=== PATIENT | male | born 1955 | race Caucasian/White ===

== ENCOUNTER 2016-07-28 23:33 | Emergency (ER) | payer SELFPAY ==
[2016-07-28 23:47] VITALS: TEMP 98.4; O2SAT 96
[2016-07-29] MEDS ORDERED: OXYCODONE/APAP 5/325 TAB PO ONE (00:05)
[2016-07-29] MEDS ORDERED: predniSONE 20 MG TAB PO ONE (00:05)
--- NOTE | 2016-07-29 00:11 | EDPHY ---
H & P Stated Complaint: LOW BACK PAIN AND PAIN TO HANDS AND FEET HPI/ROS: CHIEF COMPLAINT: Hand pain, knee pain HISTORY OF PRESENT ILLNESS: several days of bilateral hand and knee pain that has been steadily worsening. History of osteoarthritis and rheumatoid arthritis and feels that the hands are related to this. The knee pain has no diagnosis of abnormality. He says he has a history of back pain status post unknown surgery 1 year ago the lumbar spine. He knows that there is no hardware but does not know exactly what they did. This was done for data. Since that time he has had some knee pain. He has no numbness or tingling of the legs. He has no saddle anesthesia. He has no incontinence of bowel or bladder. Has no back pain of any kind right now. No fever or chills. No trauma to the knees. He has had no x-rays of the knees in the past. The pain is worse when he gets up and walks. It improves when he rests. The pain does improve throughout the morning as he ambulates. No radiating pain down the knees. 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 No other associated complaints or modifying factors. REVIEW OF SYSTEMS: Ten systems reviewed and are negative unless otherwise noted in the HPI EXAMINATION General Appearance: Alert, no distress Head: normocephalic, atraumatic Eyes: Pupils equal and round, no conjunctival pallor or injection ENT, Mouth: Mucous membranes moist . No petechiae, erythema or edema Neck: Normal inspection. No tenderness palpation midline or paravertebral Respiratory: clear to auscultation.No dyspnea or retractions. No distress Cardiovascular: Regular rate and rhythm.Pulses normal throughout. Brisk cap refill In all fingers and toes Gastrointestinal: obese. No distention . No tenderness. Back: non-tender, no bony abnormalities. Well-healed surgical incisions in the thoracic and lumbar region. No tenderness at any level midline or soft tissue Neurological: A&O, sensory symmetric in both legs and both arms. Strength is 5 /5 in both arms and both legs. No focal deficits. Patellar and triceps reflexes are symmetric Skin: Warm and dry, no rash Extremities: Nontender, no pedal edema Psychiatric: Mood and affect normal DIFFERENTIAL DIAGNOSES: Including but not limited to: Osteoarthritis, rheumatoid arthritis, chronic pain MDM: Hand and knee pain that is likely arthritic, osteo versus rheumatoid. The patient does have a history of low back pain, but he has no back pain of any kind at this time. He has no incontinence or retention of bowel or bladder. He has no radicular pain. He has some ongoing neuropathic pain of the right lower extremity that is unchanged. The pain in the hands he feels definitely rheumatoid the pain in the knees likely osteoarthritic. He feels that it only present after back surgery last year, but it is isolated to the knees. There is no dermatomal pain for him. His strength is symmetric in all limbs. His reflexes are intact. He has no focal deficits. sensory is intact as well. He has been given Percocet and prednisone here in the emergency department. Additionally, I will discharge him home on the same as well as a trial of Neurontin to see if it helps his nerve pain. He will be given primary care physician and Neurosurgery for follow-up. ER precautions for worsening pain, saddle anesthesia, incontinence of bowel or bladder, retention of bowel or bladder. Comfortable with this plan and discharged home in stable condition. ED Precautions: Worsening pain. Erythema, edema, cyanosis, pallor, paresthesia or anesthesia. SUPERVISION: This patient was independently evaluated without the aide of supervising physician. Source: Patient Exam Limitations: No limitations - Personal History Current Tetanus/Diphtheria Vaccine: Unsure Current Tetanus Diphtheria and Acellular Pertussis (TDAP): Unsure - Medical/Surgical History Hx Asthma: No Hx Chronic Respiratory Disease: No Hx Diabetes: No Hx Cardiac Disease: No Hx Renal Disease: No Hx Cirrhosis: No Hx Alcoholism: No Hx HIV/AIDS: No Hx Splenectomy or Spleen Trauma: No Other PMH: HTN, BACK SURGERY, CYST REMOVED ON BACK - Social History Smoking Status: Current every day smoker Constitutional: Initial Vital Signs Temperature (C) 98.4 F 07/28/16 23:35 Heart Rate 107 H 07/28/16 23:35 Respiratory Rate 18 07/28/16 23:35 Blood Pressure 182/125 H 07/28/16 23:35 O2 Sat (%) 96 07/28/16 23:35 O2 Delivery Mode Room Air Allergies/Adverse Reactions: No Known Allergies Allergy (Unverified 07/28/16 23:47) Home Medications: Medication Instructions Recorded Amlodipine Besylate 10 mg PO 07/28/16 Gabapentin [Neurontin 300 MG (*)] 300 mg PO TID #21 cap 07/29/16 oxyCODONE HCL/ACETAMINOPHEN 1 each PO Q4-6PRN PRN #15 tablet 07/29/16 [Percocet 5-325 mg Tablet] predniSONE 60 mg PO DAILY #12 tab 07/29/16 Medical Decision Making - Data Points Medications Given: Discontinued Medications Oxycodone/Acetaminophen (Percocet 5/325) 1 tab PO EDNOW ONE Stop: 07/29/16 00:06 Last Admin: 07/29/16 00:22 Dose: 1 tab Prednisone (Prednisone) 60 mg PO EDNOW ONE Stop: 07/29/16 00:06 Last Admin: 07/29/16 00:23 Dose: 60 mg Departure - Departure Disposition: Home, Routine, Self-Care Clinical Impression: Neuropathy Rheumatoid arthritis Qualifiers: Qualifier Code: (M06.00) Rheumatoid arthritis without rheumatoid factor, unspecified site Knee pain Qualifiers: Qualifier Code: (M25.561) Pain in right knee Hand pain Qualifiers: Qualifier Code: (M79.641) Pain in right hand Hypertension Qualifiers: Qualifier Code: (I10) Essential (primary) hypertension Condition: Good Instructions: Arthritis (ED) Referrals: NONE *PRIMARY CARE P,. [Primary Care Provider] - As per Instructions Talia Garcia MD [Medical Doctor] - As per Instructions Moraima West MD [Medical Doctor] - As per Instructions Elsy Judd DO [Doctor of Osteopathy] - As per Instructions Prescriptions: Gabapentin [Neurontin 300 MG (*)] 300 mg PO TID #21 cap oxyCODONE HCL/ACETAMINOPHEN [Percocet 5-325 mg Tablet] 1 each PO Q4-6PRN PRN # 15 tablet PRN Reason: Pain, Moderate predniSONE 60 mg PO DAILY #12 tab
[2016-07-29 01:11] VITALS: BP 179/122; PULSE 70; RESP 16
--- NOTE | 2016-07-29 08:46 | DX ---
Knee 3 Views Left History: Knee pain Comparison exam: None available. Findings: Normal alignment. Joint spaces are maintained. No fracture or joint effusion. Impression: Negative left knee radiographs.
--- NOTE | 2016-07-29 08:47 | DX ---
Knee 3 Views Right History: Knee pain. Comparison exam: None available. Findings: Normal alignment. Joint spaces are maintained. No fracture or joint effusion. Impression: Negative right knee radiographs.
== END 2016-07-29 01:15 | disposition home or self-care (01) ==
DX: M79.641 Pain in right hand (principal); M25.561 Pain in right knee; G62.9 Polyneuropathy, unspecified; M06.00 Rheumatoid arthritis without rheumatoid factor, unspecified site; I10 Essential (primary) hypertension; F17.200 Nicotine dependence, unspecified, uncomplicated

== ENCOUNTER 2016-09-16 16:13 | Emergency (ER) | payer MEDICAID ==
[2016-09-16 16:38] VITALS: RESP 18; TEMP 98.2
--- NOTE | 2016-09-16 17:12 | EDPHY ---
HPI/HX/ROS/PE/MDM Narrative: CHIEF COMPLAINT: Finger pain and swelling. HPI: The patient is a 61-year-old male with a history of RA who presents with finger pain and swelling in all of his fingers. These symptoms have been worsening over the past 2 weeks. He is now having difficulty bending his fingers. He has numbness in his fingertips. He has not been taking anything for the arthritis. He denies chest pain, shortness of breath, or any other complaints. He was seen in the ED 2 months ago for very similar symptoms. REVIEW OF SYSTEMS: Aside from elements discussed in the HPI, a comprehensive 10-point review of systems was reviewed and is negative. PMH: Hypertension, back surgery, RA. SOCIAL HISTORY: . PHYSICAL EXAM: General: Patient is alert, in no acute distress. ENT: Eyes are normal to inspection. ENT inspection normal. Neck: Normal inspection. Full range of motion. Respiratory: No respiratory distress. Breath sounds normal bilaterally. Cardiovascular: Regular rate and rhythm. Strong peripheral pulses. Abdomen: The abdomen is nontender to palpation. There are no peritoneal signs. There are normal bowel sounds. Back: Normal to inspection. No tenderness to palpation. Skin: Normal color. No rash. Warm and dry. Extremities: Normal appearance. Full range of motion. Neuro: Oriented x3. Normal motor function. Normal sensory function. No pronator drift. 5/5 strength in bilateral upper extremities. Unable to make a fist with either hand. Diffuse swelling noted to bilateral hands.Light touch sensation and motor function is preserved in the axillary, median, radial and ulnar nerve distributions. There is a 2+ radial pulse with brisk cap refill. Portions of this note were transcribed by an ED scribe. I personally performed the history, physical exam, and medical decision making; and confirm the accuracy of the information in the transcribed note. ED Course: An IV was established and labs ordered. 125mg IV Solu-Medrol administered. MDM: This patient presents with bilateral hand pain and decreased range of motion. There are no signs of unilateral focal neurologic deficit to suggest stroke or acute nerve compression. Patient has been diagnosed with rheumatoid arthritis but has been noncompliant with any therapy, and I think the most likely etiology for his symptoms represents a flare of rheumatoid arthritis. I treated him with steroid medications and will send him out on a Medrol Dosepak. 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 I see no evidence of SVC syndrome, acute carpal tunnel , fracture, dislocation. - Data Points Laboratory Results: Laboratory Results 09/16/16 17:22 09/16/16 17:22 09/16/16 09/16/16 17:22 17:22 WBC 6.64 10^3/uL 10^3/uL (3.80-9.50) RBC 5.01 10^6/uL 10^6/uL (4.40-6.38) Hgb 13.8 g/dL g/dL (13.7-17.5) Hct 41.6 % % (40.0-51.0) MCV 83.0 fL fL (81.5-99.8) MCH 27.5 pg L pg (27.9-34.1) MCHC 33.2 g/dL g/dL (32.4-36.7) RDW 15.0 % % (11.5-15.2) Plt Count 189 10^3/uL 10^3/uL (150-400) MPV 10.5 fL fL (8.7-11.7) Neut % (Auto) 70.2 % % (39.3-74.2) Lymph % (Auto) 18.2 % % (15.0-45.0) Millard % (Auto) 8.7 % % (4.5-13.0) Eos % (Auto) 1.8 % % (0.6-7.6) Baso % (Auto) 0.6 % % (0.3-1.7) Nucleat RBC Rel Count 0.0 % % (0.0-0.2) Absolute Neuts (auto) 4.66 10^3/uL 10^3/uL (1.70-6.50) Absolute Lymphs (auto) 1.21 10^3/uL 10^3/uL (1.00-3.00) Absolute Monos (auto) 0.58 10^3/uL 10^3/uL (0.30-0.80) Absolute Eos (auto) 0.12 10^3/uL 10^3/uL (0.03-0.40) Absolute Basos (auto) 0.04 10^3/uL 10^3/uL (0.02-0.10) Absolute Nucleated RBC 0.00 10^3/uL 10^3/uL (0-0.01) Immature Gran % 0.5 % % (0.0-1.1) Immature Gran # 0.03 10^3/uL 10^3/uL (0.00-0.10) Sodium 143 mEq/L mEq/L (134-144) Potassium 4.5 mEq/L mEq/L (3.5-5.2) Chloride 109 mEq/L mEq/L (97-110) Carbon Dioxide 23 mEq/l mEq/l (22-31) Anion Gap 11 mEq/L mEq/L (8-16) BUN 17 mg/dL mg/dL (7-23) Creatinine 1.1 mg/dL mg/dL (0.7-1.3) Estimated GFR > 60 Glucose 134 mg/dL H mg/dL (70-100) Calcium 9.4 mg/dL mg/dL (8.5-10.4) Medications Given: Discontinued Medications Methylprednisolone Sodium Succinate (Solu-Medrol) 125 mg IVP EDNOW ONE Stop: 09/16/16 17:18 Last Admin: 09/16/16 17:30 Dose: 125 mg Oxycodone/Acetaminophen (Percocet 5/325) 1 tab PO EDNOW ONE Stop: 09/16/16 18:26 Last Admin: 09/16/16 18:41 Dose: 1 tab General Time Seen by Provider: 09/16/16 17:09 Initial Vital Signs: Initial Vital Signs Temperature (C) 36.8 C 09/16/16 16:25 Heart Rate 95 09/16/16 16:25 Respiratory Rate 18 09/16/16 16:25 Blood Pressure 140/105 H 09/16/16 16:25 O2 Sat (%) 96 09/16/16 16:25 O2 Delivery Mode Room Air Allergies/Adverse Reactions: No Known Allergies Allergy (Verified 09/16/16 16:33) Home Medications: Medication Instructions Recorded Amlodipine Besylate 10 mg PO 07/28/16 Gabapentin [Neurontin 300 MG (*)] 300 mg PO TID #21 cap 07/29/16 methylPREDNISolone [Medrol Dose 1 each PO AD #1 ea 09/16/16 Juan Alberto] oxyCODONE/APAP 5/325 [Percocet 1 - 2 tab PO Q4H PRN #10 tab 09/16/16 5/325 (*)] traZODone [traZODONE 100MG (*)] 100 mg PO 09/16/16 Departure - Departure Disposition: Home, Routine, Self-Care Clinical Impression: Rheumatoid arthritis flare, Bilateral hand pain Condition: Good Instructions: Rheumatoid Arthritis (ED) Additional Instructions: Take the steroid as prescribed. Follow up with Dr. Núñez, roll forming machine set up mechanic, this week for reevaluation. Return to the emergency department if you experience any serious worsening of condition. Referrals: Talia Garcia MD [Primary Care Provider] - As per Instructions [place] Núñez MD [Medical Doctor] - As per Instructions Prescriptions: methylPREDNISolone [Medrol Dose Juan Alberto] 1 each PO AD #1 ea oxyCODONE/APAP 5/325 [Percocet 5/325 (*)] 1 - 2 tab PO Q4H PRN #10 tab PRN Reason: Pain, Severe Report Scribed for: Juan Manuel Rodriguez Report Scribed by: Krish Reid Date of Report: 09/16/16 Time of Report: 17:16
[2016-09-16] MEDS ORDERED: methylPREDNISolone SOD SUCC 125 MG/2 ML VIAL IVP ONE (17:17)
[2016-09-16 17:29] LABS: % IMMATURE GRANULYOCYTES 0.5 % (0.0-1.1); ABSOLUTE IMMATURE GRANULOCYTES 0.03 10^3/uL (0.00-0.10); ADD DIFF? NO; ADD MORPH? NO; ADD SCAN? NO; ATYPICAL LYMPHOCYTE FLAG 20 (0-99); FRAGMENT RBC FLAG 0 (0-99); HEMATOCRIT 41.6 % (40.0-51.0); HEMOGLOBIN 13.8 g/dL (13.7-17.5); LEFT SHIFT FLG 0 (0-99); LIPEMIA HEMOLYSIS FLAG 80 (0-99); MEAN CELL HEMOGLOBIN 27.5 pg (27.9-34.1); MEAN CELL HEMOGLOBIN CONCENTR. 33.2 g/dL (32.4-36.7); MEAN PLATELET VOLUME 10.5 fL (8.7-11.7); PLATELET CLUMPS FLAG 0 (0-99); PLATELET COUNT 189 10^3/uL (150-400); RED BLOOD CELL COUNT 5.01 10^6/uL (4.40-6.38)
[2016-09-16 17:46] LABS: ANION GAP 11 mEq/L (8-16); CALCIUM 9.4 mg/dL (8.5-10.4); CARBON DIOXIDE 23 mEq/l (22-31); CHLORIDE 109 mEq/L (97-110); CREATININE 1.1 mg/dL (0.7-1.3); GLOMERULAR FILTRATION RATE > 60; GLUCOSE 134 mg/dL (70-100); POTASSIUM 4.5 mEq/L (3.5-5.2); SODIUM 143 mEq/L (134-144)
[2016-09-16] MEDS ORDERED: OXYCODONE/APAP 5/325 TAB PO ONE (18:25)
[2016-09-16 19:34] VITALS: BP 153/104; PULSE 82; O2SAT 93
== END 2016-09-16 19:33 | disposition home or self-care (01) ==
DX: M06.9 Rheumatoid arthritis, unspecified (principal); I10 Essential (primary) hypertension
CPT/HCPCS: 96374

== ENCOUNTER 2017-08-05 18:56 | Emergency (ER) | payer OTHER, MEDICAID ==
[2017-08-05 19:05] VITALS: TEMP 98.1
--- NOTE | 2017-08-05 19:32 | EDPHY ---
H & P Time Seen by Provider: 08/05/17 19:14 HPI/ROS: CHIEF COMPLAINT: Leg pain, swelling HISTORY OF PRESENT ILLNESS: The patient is a 62-year-old male with a history of hypertension and back surgery presents to the emergency department with new left-sided leg pain and bilateral leg swelling. Patient states he has had mild leg swelling since his surgery 2 years ago. He has also had mild chronic bilateral knee pain since the surgery. However, over the past week he has developed pain in his left buttock radiating to his left lateral knee. Patient also states that he has bilateral pedal edema that is worsening. He has had no chest pain or shortness of breath. No abdominal pain. No nausea or vomiting. No fevers or chills. REVIEW OF SYSTEMS: My complete review of systems is negative except as mentioned in the HPI. Past Medical/Surgical History: Includes hypertension, chronic pain, rheumatoid arthritis Past surgical history: Back surgery, cyst removal Social history: The patient smokes cigarettes. He denies drugs or alcohol. Smoking Status: Current every day smoker Physical Exam: 36.7, 184/102, 92, 18, 96 GENERAL: No acute distress, alert. The room smells of tobacco smoke. HEENT: Eyes normal to inspection, normal pharynx, no signs of dehydration. NECK: No thyromegaly, no lymphadenopathy, supple. RESPIRATORY: Clear to auscultation bilaterally, no rales, rhonchi or wheezing. CVS: Regular rate and rhythm, no rubs, murmurs, or gallops. ABDOMEN: Soft, nontender, nondistended, no organomegaly. BACK: Normal to inspection, no CVA tenderness. No SI tenderness palpation. No midline spinal tenderness to palpation. There is a noted surgical scar. SKIN: Normal color, no rash, warm, dry. No pallor. EXTREMITIES: Bilateral mild pedal edema, no calf tenderness, no Homans sign or cords, no joint swelling. NEURO/PSYCH: Alert and oriented x3, normal mood and affect, normal motor sensory exam. No obvious cranial nerve deficit. Constitutional: Initial Vital Signs Temperature (C) 36.7 C 08/05/17 19:02 Heart Rate 92 08/05/17 19:02 Respiratory Rate 18 08/05/17 19:02 Blood Pressure 184/102 H 08/05/17 19:02 O2 Sat (%) 96 08/05/17 19:02 O2 Delivery Mode Room Air Allergies/Adverse Reactions: No Known Allergies Allergy (Verified 08/05/17 19:01) Home Medications: Medication Instructions Recorded amLODIPine BESYLATE [Amlodipine 10 mg PO 07/28/16 Besylate] Gabapentin [Neurontin 300 MG (*)] 300 mg PO TID #21 cap 07/29/16 oxyCODONE/APAP 5/325 [Percocet 1 - 2 tab PO Q4H PRN #10 tab 09/16/16 5/325 (*)] Azithromycin 250 mg PO DAILY #4 tablet 08/05/17 Cyclobenzaprine [Flexeril] 10 mg PO TID #15 tab 08/05/17 oxyCODONE/APAP 5/325 [Percocet 1 - 2 tab PO Q4PRN PRN #11 tab 08/05/17 5/325 (*)] Medical Decision Making - Diagnostics Imaging Results: Imaging Impressions Chest X-Ray 08/05/17 20:09 Impression: Mild bronchitis. No other findings for acute cardiopulmonary abnormality. Chronic findings, as above. Extremity Venous Study 08/05/17 20:10 Impression: No deep venous thrombosis bilateral legs. Results called and discussed with Dr. Rosemarie Maldonado at 08/05/2017 21:49. ED Course/Re-evaluation: In the emergency department I discussed possible etiologies with the patient. I answered all his questions. IV was placed. Laboratory studies, chest x-ray, EKG and ultrasound were ordered. The patient was given morphine 4 mg IV for pain control and Zofran 4 mg IV for nausea. Patient was still having leg pain after his 1st dose of morphine was given 2nd dose of 4 mg morphine. 95: During his ultrasound he was complaining of leg pain and states he could not continue with the study. He is given fentanyl 100 mcg IV. Differential Diagnosis: Differential includes but is not limited to sciatica, disc herniation, musculoskeletal strain, arterial occlusion, DVT, CHF, ACS - Data Points Laboratory Results: Laboratory Results 08/05/17 20:15 08/05/17 20:15 08/05/17 08/05/17 20:15 20:15 WBC 6.23 10^3/uL 10^3/uL (3.80-9.50) RBC 4.90 10^6/uL 10^6/uL (4.40-6.38) Hgb 13.3 g/dL L g/dL (13.7-17.5) Hct 40.5 % % (40.0-51.0) MCV 82.7 fL fL (81.5-99.8) MCH 27.1 pg L pg (27.9-34.1) MCHC 32.8 g/dL g/dL (32.4-36.7) RDW 14.6 % % (11.5-15.2) Plt Count 173 10^3/uL 10^3/uL (150-400) MPV 10.8 fL fL (8.7-11.7) Neut % (Auto) 70.8 % % (39.3-74.2) Lymph % (Auto) 19.4 % % (15.0-45.0) Smyth % (Auto) 8.0 % % (4.5-13.0) Eos % (Auto) 1.1 % % (0.6-7.6) Baso % (Auto) 0.5 % % (0.3-1.7) Nucleat RBC Rel Count 0.0 % % (0.0-0.2) Absolute Neuts (auto) 4.41 10^3/uL 10^3/uL (1.70-6.50) Absolute Lymphs (auto) 1.21 10^3/uL 10^3/uL (1.00-3.00) Absolute Monos (auto) 0.50 10^3/uL 10^3/uL (0.30-0.80) Absolute Eos (auto) 0.07 10^3/uL 10^3/uL (0.03-0.40) Absolute Basos (auto) 0.03 10^3/uL 10^3/uL (0.02-0.10) Absolute Nucleated RBC 0.00 10^3/uL 10^3/uL (0-0.01) Immature Gran % 0.2 % % (0.0-1.1) Immature Gran # 0.01 10^3/uL 10^3/uL (0.00-0.10) Sodium 142 mEq/L mEq/L (135-145) Potassium 4.1 mEq/L mEq/L (3.5-5.2) Chloride 105 mEq/L mEq/L (97-110) Carbon Dioxide 22 mEq/l mEq/l (22-31) Anion Gap 15 mEq/L mEq/L (8-16) BUN 15 mg/dL mg/dL (7-23) Creatinine 1.0 mg/dL mg/dL (0.7-1.3) Estimated GFR > 60 Glucose 112 mg/dL H mg/dL (70-100) Calcium 9.2 mg/dL mg/dL (8.5-10.4) Troponin I < 0.012 ng/mL ng/mL (0.000-0.034) NT-Pro-B Natriuret Pep 116 pg/mL pg/mL (0-125) Medications Given: Discontinued Medications Fentanyl (Sublimaze) 100 mcg IVP EDNOW ONE Stop: 08/05/17 21:19 Last Admin: 08/05/17 21:23 Dose: 100 mcg Morphine Sulfate (Morphine) 4 mg IVP EDNOW ONE Stop: 08/05/17 20:10 Last Admin: 08/05/17 20:23 Dose: 4 mg Morphine Sulfate (Morphine) 4 mg IVP EDNOW ONE Stop: 08/05/17 20:58 Last Admin: 08/05/17 21:00 Dose: 4 mg Ondansetron HCl (Zofran) 4 mg IVP EDNOW ONE Stop: 08/05/17 20:10 Last Admin: 08/05/17 20:23 Dose: 4 mg Departure - Departure Disposition: Home, Routine, Self-Care Clinical Impression: Pedal edema, Left leg pain, Bronchitis Condition: Good Instructions: Sciatica (ED), Knee Pain (ED), Leg Pain (ED), Acute Bronchitis ( ED) Additional Instructions: You need close follow-up with Dr. Garcia. Call to make an appointment. You been given antibiotics for your ongoing cough and diagnosis of bronchitis. Return with worsening symptoms or any other concerns. Referrals: Talia Garcia MD [Primary Care Provider] - 2-3 days without fail
[2017-08-05] MEDS ORDERED: ONDANSETRON 4 MG/2 ML VIAL IVP ONE (20:09)
[2017-08-05 20:28] LABS: PLATELET COUNT 173 10^3/uL (150-400)
[2017-08-05] MEDS ORDERED: fentaNYL 100 MCG/2 ML INJ IVP ONE (21:18)
[2017-08-05 21:32] VITALS: RESP 16
[2017-08-05] MEDS ORDERED: AZITHROMYCIN 250 MG TAB PO ONE (22:32)
[2017-08-05 22:49] VITALS: BP 163/80; PULSE 80; O2SAT 95
== END 2017-08-05 22:47 | disposition home or self-care (01) ==
DX: M79.605 Pain in left leg (principal); R60.0 Localized edema; J40 Bronchitis, not specified as acute or chronic; F17.210 Nicotine dependence, cigarettes, uncomplicated; I10 Essential (primary) hypertension
CPT/HCPCS: 96374; J2405; J3010

== ENCOUNTER 2017-08-17 12:19 | Emergency (ER) | payer OTHER, MEDICAID ==
[2017-08-17 12:42] VITALS: RESP 16; TEMP 98.1
--- NOTE | 2017-08-17 13:01 | EDPHY ---
H & P Time Seen by Provider: 08/17/17 13:00 HPI/ROS: CHIEF COMPLAINT: Low back pain, bilateral leg pain HISTORY OF PRESENT ILLNESS: The patient is a 62 y/o male with a history of hypertension, lumbar spine surgery (2 years ago), and chronic pain complaining of worsening low back pain and bilateral leg pain. On 08/05/17, 2 weeks ago, he was seen in this ED for left leg pain and bilateral leg swelling. He had a bilateral LE US performed, which was negative for a DVT. He followed up with his pain management physician , Dr. Curtis Elias, following the ED visit, but the pain has been worsening and became exacerbated last night. On 08/19/17, he is scheduled for an MRI. Today he is having difficulty walking due to the pain in his legs. His symptoms today are worse than prior to his lumbar surgery. Takes Morphine, Percocet, and Gabapentin. He recently ran out of Percocet. Denies chest pain, shortness of breath, fever, vomiting, diarrhea, urinary complaints or other worsening of symptoms. Prior medical records reviewed including ED Visit on 08/05/17. REVIEW OF SYSTEMS: Aside from elements discussed in the HPI, a comprehensive 10-point review of systems was reviewed and is negative. Past Medical/Surgical History: Hypertension, lumbar spine surgery (2 years ago) Social History: Lives in [place], single, retired Smoking Status: Current every day smoker Physical Exam: General Appearance: Alert, pleasant Eyes: Pupils equal and round, no conjunctival pallor or injection ENT, Mouth: Mucous membranes moist Neck: Normal inspection Respiratory: Lungs are clear to auscultation Cardiovascular: Regular rate and rhythm Gastrointestinal: Abdomen is soft and non-tender Back: Nontender Neurological: Alert, oriented x3, motor 5/5 including ankle/1st toe dorsiflexion, patellar reflexes 2+, sensory intact to light touch Skin: Warm and dry Extremities: Nontender Psychiatric: Mood and affect normal Constitutional: Initial Vital Signs Temperature (C) 36.7 C 08/17/17 12:19 Heart Rate 91 08/17/17 12:19 Respiratory Rate 16 08/17/17 12:19 Blood Pressure 130/105 H 08/17/17 12:19 O2 Sat (%) 97 08/17/17 12:19 O2 Delivery Mode Room Air Allergies/Adverse Reactions: No Known Allergies Allergy (Verified 08/05/17 19:01) Home Medications: Medication Instructions Recorded amLODIPine BESYLATE [Amlodipine 10 mg PO 07/28/16 Besylate] oxyCODONE/APAP 5/325 [Percocet 1 - 2 tab PO Q4H PRN #10 tab 09/16/16 5/325 (*)] Cyclobenzaprine [Flexeril] 10 mg PO TID #15 tab 08/05/17 oxyCODONE/APAP 5/325 [Percocet 1 - 2 tab PO Q4PRN PRN #11 tab 08/05/17 5/325 (*)] methylPREDNISolone [Medrol Dose 1 each PO AD #1 ea 08/17/17 Juan Alberto] morphINE 08/17/17 oxyCODONE/APAP 5/325 [Percocet 1 tab PO Q4 PRN #10 tab 08/17/17 5/325 (*)] traZODone 08/17/17 Medical Decision Making - Diagnostics Imaging Results: Lumbar Spine MRI 08/17/17 13:12 Impression: Multilevel degenerative disk and degenerative joint disease lumbar spine, with multiple levels of severe central spinal canal and neural foraminal narrowing. The level of most severe central spinal canal narrowing is at L4- L5. Please see detailed description by level above. Imaging: Discussed imaging studies w/ underwriting technician Radiologist ED Course/Re-evaluation: The patient is a 62 y/o male with a history of lumbar spine surgery presenting with worsening bilateral leg pain and mild-low back pain. His pain medications, Morphine, Percocet, and Gabapentin, are not improving his symptoms. Now he is having substantial difficulty walking. Physical exam is unremarkable. Lumbar spine MRI ordered. 10mg IV Decadron, 1mg IV Dilaudid, and 4mg IV Zofran administered. 1435: Spoke with radiologist, patient has severe central spinal canal and neural foraminal narrowing as well as multilevel degenerative disk and degenerative joint disease lumbar spine. 1454: Reassessed patient and discussed imaging findings. Admission versus discharge home discussed. The patient would like to go home and feels that he will be able to walk with a steady gait. I have referred him to Dr. Farrell, neurosurgeon. Patient will be prescribed Medrol and Percocet. Return precautions provided; patient is comfortable with this plan. Differential Diagnosis: Differential diagnosis for back pain includes muscular pain, herniated disc, epidural abscess, discitis, spine fracture, intra-abdominal causes and urinary tract infection. - Data Points Laboratory Results: Laboratory Results 08/17/17 13:15 08/17/17 13:15 Medications Given: Discontinued Medications Dexamethasone (Decadron Injection) 10 mg IVP EDNOW ONE Stop: 08/17/17 13:13 Last Admin: 08/17/17 13:28 Dose: 10 mg Hydromorphone HCl (Dilaudid) 1 mg IVP EDNOW ONE Stop: 08/17/17 13:13 Last Admin: 08/17/17 13:28 Dose: 1 mg Ondansetron HCl (Zofran) 4 mg IVP EDNOW ONE Stop: 08/17/17 13:13 Last Admin: 08/17/17 13:28 Dose: 4 mg Departure - Departure Disposition: Home, Routine, Self-Care Clinical Impression: Degenerative disc disease, lumbar Spinal stenosis Qualifiers: Spinal region: lumbar Neurogenic claudication status: with neurogenic claudication Qualified Code(s): M48.062 - Spinal stenosis, lumbar region with neurogenic claudication Condition: Good Instructions: Lumbar Spinal Stenosis (ED) Additional Instructions: Follow up with a neurosurgeon next week, you have been referred to Dr. Farrell. Keep your appointment with your pain management physician. Take Medrol and Percocet as prescribed. Return to the emergency department for severe pain, fever, numbness, difficulty walking, change in location or nature of pain or other concerns. Referrals: Duncan Farrell MD [Medical Doctor] - As per Instructions Prescriptions: methylPREDNISolone [Medrol Dose Juan Alberto] 1 each PO AD #1 ea oxyCODONE/APAP 5/325 [Percocet 5/325 (*)] 1 tab PO Q4 PRN #10 tab PRN Reason: pain Report Scribed for: Elif Clifton Report Scribed by: Shakila Adams Date of Report: 08/17/17 Time of Report: 13:01 Physician Review and Approval Statement: 08/17/17 13:01 Portions of this note were transcribed by a medical attendant. I personally performed a history, physical exam, medical decision making, and confirmed accuracy of information the transcribed note.
[2017-08-17] MEDS ORDERED: ONDANSETRON 4 MG/2 ML VIAL IVP ONE (13:12)
[2017-08-17] MEDS ORDERED: DEXAMETHASONE 10 MG/ML VIAL IVP ONE (13:12)
[2017-08-17] MEDS ORDERED: HYDROmorphONE/DILAUDID 1 MG/ML INJ IVP ONE (13:12)
[2017-08-17 13:27] LABS: PLATELET COUNT 187 10^3/uL (150-400)
[2017-08-17 15:17] VITALS: BP 134/89; PULSE 81; O2SAT 98
== END 2017-08-17 15:16 | disposition home or self-care (01) ==
LOC: EDUNIT#
DX: M51.36 Other intervertebral disc degeneration, lumbar region (principal); M48.062 Spinal stenosis, lumbar region with neurogenic claudication; I10 Essential (primary) hypertension; F17.200 Nicotine dependence, unspecified, uncomplicated
CPT/HCPCS: 96374; J1100; J1170; J2405

== ENCOUNTER 2017-09-14 12:20 | Emergency (ER) | payer OTHER, MEDICAID ==
--- NOTE | 2017-09-14 13:03 | EDPHY ---
H & P Stated Complaint: pain in bilateral thights and knees, back sx scheduled for Saturday Time Seen by Provider: 09/14/17 13:03 HPI/ROS: CHIEF COMPLAINT: Back pain, leg pain HISTORY OF PRESENT ILLNESS: The patient has a history of lumbar stenosis and presents the emergency department with complaints of worsening back pain and leg pain. He reportedly is scheduled to see the neurosurgeon on Saturday and has been told he may get surgery on Saturday. The patient has been taking a total of (5) 15 mg OxyContin tablets on a daily basis. The patient denies bowel or bladder dysfunction. The patient complains of pain in his bilateral thighs. REVIEW OF SYSTEMS: A comprehensive 10 point review of systems is otherwise negative aside from elements mentioned in the history of present illness. Source: Patient Exam Limitations: No limitations - Personal History Current Tetanus/Diphtheria Vaccine: Yes Current Tetanus Diphtheria and Acellular Pertussis (TDAP): Yes Tetanus Vaccine Date: < 10 years - Medical/Surgical History Hx Asthma: No Hx Chronic Respiratory Disease: No Hx Diabetes: No Hx Cardiac Disease: Yes Hx Renal Disease: No Hx Cirrhosis: No Hx Alcoholism: No Hx HIV/AIDS: No Hx Splenectomy or Spleen Trauma: No Other PMH: HTN, BACK SURGERY, CYST REMOVED ON BACK. ?RA chronic pain. PAIN MGT - Social History Smoking Status: Current every day smoker - Physical Exam Exam: General Appearance: Alert, mild discomfort Eyes: Pupils equal and round no pallor or injection ENT, Mouth: Mucous membranes moist Respiratory: There are no retractions, lungs are clear to auscultation Cardiovascular: Regular rate and rhythm Gastrointestinal: Abdomen is soft and nontender, no masses, bowel sounds normal Neurological: Patient is noted to have 5/5 strength bilaterally with a T/PT/EHL /FHL,5-/5 hip and knee flexion bilaterally. Skin: Warm and dry, no rashes Musculoskeletal: Tenderness to palpation throughout the lower lumbar region, poorly localized and not specifically midline Extremities: symmetrical, full range of motion Constitutional: Initial Vital Signs Temperature (C) 36.8 C 09/14/17 12:23 Heart Rate 117 H 09/14/17 12:23 Respiratory Rate 20 09/14/17 12:23 Blood Pressure 146/103 H 09/14/17 12:23 O2 Sat (%) 99 09/14/17 12:23 O2 Delivery Mode Room Air Allergies/Adverse Reactions: No Known Allergies Allergy (Verified 09/14/17 12:22) Home Medications: Medication Instructions Recorded amLODIPine BESYLATE [Amlodipine 10 mg PO 07/28/16 Besylate] traZODone 08/17/17 Oxycodone HCl 09/14/17 Medical Decision Making ED Course/Re-evaluation: The patient had an IV established. He received 1 mg of IV Dilaudid. I reviewed the results of his prior MRI. The patient does have central canal stenosis. I re-evaluated the patient at 2:40 p.m.. He is ambulatory. He reports his pain is improved. I do not find evidence of an acute neurosurgical emergency. He certainly could have symptomatic spinal stenosis. The patient is comfortable being discharged home and following up with Neurosurgery as scheduled on Saturday. I discussed the case with the on-call neurosurgery service informing them of my evaluation and plan to discharge. They are comfortable with this plan. - Data Points Medications Given: Discontinued Medications Hydromorphone HCl (Dilaudid) 1 mg IVP EDNOW ONE Stop: 09/14/17 13:24 Last Admin: 09/14/17 13:34 Dose: 1 mg Departure - Departure Disposition: Home, Routine, Self-Care Clinical Impression: Spinal stenosis Condition: Good Instructions: Lumbar Spinal Stenosis (ED) Additional Instructions: 1. Continue your regular pain medications. 2. You have been given a prescription for lidocaine patches. You have been given a prescription for Valium to use as a muscle relaxant. 3. Please follow up with Dr. Durham as scheduled on Saturday. 4. Please return to the ED for markedly worsening symptoms or other concerns. Referrals: Duncan Farrell MD [Medical Doctor] - As per Instructions
[2017-09-14] MEDS ORDERED: HYDROmorphONE/DILAUDID 2 MG/ML INJ IVP ONE (13:23)
[2017-09-14 14:53] VITALS: BP 147/98; PULSE 100; RESP 14; TEMP 98.1; O2SAT 100
== END 2017-09-14 14:54 | disposition home or self-care (01) ==
DX: M48.00 Spinal stenosis, site unspecified (principal); I10 Essential (primary) hypertension; F17.200 Nicotine dependence, unspecified, uncomplicated
CPT/HCPCS: 96374; J1170

== ENCOUNTER 2017-09-15 00:59 | Emergency (ER) | payer OTHER, MEDICAID ==
[2017-09-15 01:06] VITALS: RESP 20; TEMP 98.1
[2017-09-15] MEDS ORDERED: HYDROmorphONE/DILAUDID 2 MG/ML INJ IM ONE (01:44)
--- NOTE | 2017-09-15 01:57 | EDPHY ---
H & P Stated Complaint: Pt is going to have back surgery saturday unable to control pain Time Seen by Provider: 09/15/17 01:18 HPI/ROS: HPI The patient presents with lower back pain, bilateral leg pain which has been present for the last 1-2 months, though is been worse over the last 1 day. The pain is constant, sharp and achy. The pain is worse with walking making it difficult for him to walk. He was able to fall sleep tonight, however woke up in severe pain. He is using a fentanyl patch as well as Valium. He ran out of oxycodone that is prescribed by his pain management doctor over the last few days. He denies any numbness or tingling, bowel or bladder. The patient had an MRI of his spine performed in August of this year which showed severe lumbar spinal stenosis. He has been seen by Neurosurgery for this. He has an appointment in [address] Durham for what he describes as a preoperative visit. The patient was in the emergency department yesterday with this same pain. He received a dose of Dilaudid and his symptoms improved. He was discharged home, however the pain continued. He spoke with the neuro surgical team who recommended continued medication management and follow-up as already planned. REVIEW OF SYSTEMS Constitutional: No fever, no chills. Eyes: No discharge. ENT: No sore throat. Cardiovascular: No chest pain, no palpitations. Respiratory: No cough, no shortness of breath. Gastrointestinal: No abdominal pain, no vomiting. Genitourinary: No hematuria. Musculoskeletal: No back pain. Skin: No rashes. Neurological: No headache. PMHx: Severe spinal stenosis Soc Hx: Positive for tobacco use PHYSICAL General Appearance: Alert, no distress Eyes: Pupils equal and round no pallor or injection ENT, Mouth: Mucous membranes moist Respiratory: There are no retractions, lungs are clear to auscultation Cardiovascular: Regular rate and rhythm Gastrointestinal: Abdomen is soft and non-tender, no masses, bowel sounds normal Neurological: A&O, cranial nerves 2-12 intact, 5/5 strength upper and lower extremities which is symmetric though in his lower extremities there is some limitation secondary to pain Skin: Warm and dry, no rashes Musculoskeletal: Neck is supple non tender Extremities: symmetrical, full range of motion Psychiatric: Patient is oriented X 3, there is no agitation Source: Patient Exam Limitations: No limitations - Personal History Current Tetanus/Diphtheria Vaccine: Yes Current Tetanus Diphtheria and Acellular Pertussis (TDAP): Yes Tetanus Vaccine Date: < 10 years - Medical/Surgical History Hx Asthma: No Hx Chronic Respiratory Disease: No Hx Diabetes: No Hx Cardiac Disease: Yes Hx Renal Disease: No Hx Cirrhosis: No Hx Alcoholism: No Hx HIV/AIDS: No Hx Splenectomy or Spleen Trauma: No Other PMH: HTN, BACK SURGERY, CYST REMOVED ON BACK. ?RA chronic pain. PAIN MGT - Social History Smoking Status: Current every day smoker Constitutional: Initial Vital Signs Temperature (C) 36.7 C 09/15/17 01:03 Heart Rate 100 09/15/17 01:03 Respiratory Rate 20 09/15/17 01:03 Blood Pressure 172/110 H 09/15/17 01:03 O2 Sat (%) 96 09/15/17 01:03 O2 Delivery Mode Room Air Allergies/Adverse Reactions: No Known Allergies Allergy (Verified 09/15/17 01:06) Home Medications: Medication Instructions Recorded amLODIPine BESYLATE [Amlodipine 10 mg PO 07/28/16 Besylate] traZODone 08/17/17 Diazepam [Valium 10 MG (RX)] 10 mg PO TID PRN #20 tab 09/14/17 Lidocaine [Lidoderm] 1 each TP AD PRN #15 adh..patch 09/14/17 Oxycodone HCl 09/14/17 Medical Decision Making Differential Diagnosis: This is a 62-year-old man with known severe lumbar spinal stenosis based on MRI performed 1 month ago, currently followed by Neurosurgery, who presents with ongoing lower back and leg pain, seen yesterday in the emergency department for same. On exam, he has no neurologic deficit. He does not have any changes in bowel or bladder function. I have discussed the case with the neurosurgical physician library services assistant production supervisor trainee Mellissa Carranza. I then discussed the case with Dr. Elsy Judd, production supervisor trainee for neurosurgery. The patient has talked with the neuro surgical team today and hung up the phone on them. There is some concern that he is medication seeking. They suspect that because he is out of his oxycodone this is caused breakthrough pain from likely opiate withdrawal. He should be following up with his paint stock clerk for this. They recommend outpatient management, patient has an appointment tomorrow with Neurosurgery and his pain management doctor. - Data Points Medications Given: Discontinued Medications Hydromorphone HCl (Dilaudid) 1 mg IM EDNOW ONE Stop: 09/15/17 01:45 Last Admin: 09/15/17 01:56 Dose: 1 mg Departure - Departure Disposition: Home, Routine, Self-Care Clinical Impression: Lower back pain, Lumbar spinal stenosis Condition: Good Instructions: Lumbar Spinal Stenosis (ED) Additional Instructions: Please follow-up with the neurosurgeon and year paint stock clerk tomorrow. Referrals: Talia Garcia MD [Primary Care Provider] - As per Instructions
[2017-09-15 04:23] VITALS: BP 170/100; PULSE 87; O2SAT 95
== END 2017-09-15 04:23 | disposition home or self-care (01) ==
DX: M48.061 Spinal stenosis, lumbar region without neurogenic claudication (principal); I10 Essential (primary) hypertension; F17.200 Nicotine dependence, unspecified, uncomplicated
CPT/HCPCS: J1170

== ENCOUNTER 2017-10-09 09:20 | Emergency (ER) | payer OTHER, MEDICAID ==
[2017-10-09 09:30] VITALS: RESP 18
[2017-10-09] MEDS ORDERED: fentaNYL 100 MCG/2 ML INJ IVP ONE (09:31)
[2017-10-09] MEDS ORDERED: DEXAMETHASONE 4 MG/ML VIAL IVP ONE (09:53)
[2017-10-09] MEDS ORDERED: DIAZEPAM 5 MG/ML 1 ML SYR IVP ONE (09:53)
[2017-10-09] MEDS ORDERED: KETOROLAC 15 MG/1 ML SDV IVP ONE (09:53)
[2017-10-09] MEDS ORDERED: KETAMINE 200 MG/20 ML VIAL IVP ONE (09:53)
--- NOTE | 2017-10-09 09:55 | EDPHY ---
H & P Stated Complaint: leg and back pain Time Seen by Provider: 10/09/17 09:34 HPI/ROS: CHIEF COMPLAINT: acute on chronic low back pain HISTORY OF PRESENT ILLNESS: 62-year-old male arrives via ambulance complaining of acute breakthrough back pain. He has a history of chronic low back pain for the past several months and is followed by Dr. Mao Durham, Neurosurgery in scheduled for a in L2 through L5 laminectomy on 10/15/2017 at [facility]. He was seen the ER in early September for same complaints and was seen at [facility] Emergency Department 2 days ago for same complaint, states that he felt relief after being discharged from the ER. Pain feels similar to his low back pain. No incontinence no retention no saddle anesthesia. REVIEW OF SYSTEMS: A ten point review of systems was performed and is negative with the exception of the items mentioned in the HPI PAST MEDICAL & SURGICAL HISTORY: Chronic low back pain SOCIAL HISTORY:Lives with a friend PHYSICAL EXAM (Prior to examination, patient consented to physical exam, hands were washed and my usual and customary physical exam procedures followed) 1) GENERAL: Well-developed, well-nourished, alert and oriented. Appears uncomfortable initial evaluation, laying supine, pain with trying to sit up for any other movement. 2) HEAD: Normocephalic, atraumatic 3) HEENT: Pupils equal, round, reactive to light bilaterally. Sclera anicteric. Nasopharynx, oropharynx, clear, no lesions. 4) NECK: Full range of motion, no meningeal signs. 5) LUNGS: Clear auscultation bilaterally, no wheezes, no rhonchi, no retractions. 6) HEART: Regular rate and rhythm, no murmur, no heave, no gallop. 7) ABDOMEN: No guarding, no rebound, no focal tenderness, negative McBurney's, negative Lujan's, negative Rovsing's, negative peritoneal sign, 8) MUSCULOSKELETAL: Moving all extremities, no focal areas of tenderness, no obvious trauma. No peripheral edema or discoloration. 9) BACK: tender to palpation paraspinous muscle. No CVA tenderness, no midline vertebral tenderness, no fluctuance, no step-off, no obvious trauma, no visual or palpable abnormality. Patella, Achilles reflexes intact to bilateral strength 5/5 10) SKIN: No rash, no petechiae. 11) NEURO: Awake, alert, and oriented to person, place and time. Answers questions appropriately. There were no obvious focal neurologic abnormalities. No cerebellar dysfunction. Normal steady gait. Upper and lower extremities bilaterally with strength 5 / 5, reflexes 2+.. DIFFERENTIAL DIAGNOSIS: In no particular order, including but not limited to, fracture, sprain/strain, cauda equina, spinal infectious etiology. - Personal History Current Tetanus/Diphtheria Vaccine: Yes Current Tetanus Diphtheria and Acellular Pertussis (TDAP): Yes Tetanus Vaccine Date: < 10 years - Medical/Surgical History Hx Asthma: No Hx Chronic Respiratory Disease: No Hx Diabetes: No Hx Cardiac Disease: Yes Hx Renal Disease: No Hx Cirrhosis: No Hx Alcoholism: No Hx HIV/AIDS: No Hx Splenectomy or Spleen Trauma: No Other PMH: HTN, BACK SURGERY, CYST REMOVED ON BACK. ?RA chronic pain. PAIN MGT - Social History Smoking Status: Current every day smoker Constitutional: Initial Vital Signs Temperature (C) 36.8 C 10/09/17 09:28 Heart Rate 98 10/09/17 09:28 Respiratory Rate 18 10/09/17 09:28 Blood Pressure 162/122 H 10/09/17 09:28 O2 Sat (%) 98 10/09/17 09:28 O2 Delivery Mode Room Air O2 (L/minute) 2 Allergies/Adverse Reactions: No Known Allergies Allergy (Verified 09/15/17 01:06) Home Medications: Medication Instructions Recorded amLODIPine BESYLATE [Amlodipine 10 mg PO 07/28/16 Besylate] traZODone 08/17/17 Diazepam [Valium 10 MG (RX)] 10 mg PO TID PRN #20 tab 09/14/17 Lidocaine [Lidoderm] 1 each TP AD PRN #15 adh..patch 09/14/17 Oxycodone HCl 09/14/17 Medical Decision Making ED Course/Re-evaluation: 10:00 a.m.: I reviewed the patient's old medical records. Will provide analgesia in the emergency department and re-evaluated. 10:50 a.m.: Re-evaluation after analgesic. At this time his has gotten him self up out of bed, sitting on the chair and appears significantly improved. States that his pain his much more tolerable now. He continues to experience mild pain. He is concerned about being discharged. I will contact Neurosurgery Dr. Mao Durham discussed case. Doubt cauda equina, epidural abscess, epidural hematoma, lumbar myositis, diskitis . 11:40 a.m.: Consultation with on-call neurosurgical PA Aquiles Savage who will forward the patient's information to Dr. Durham. 11:49 a.m.: I discussed my consultation with the patient. He feels comfortable being discharged. I offered admission however he feels comfortable being discharged and would like to keep his plans for surgery on Saturday at [facility] with Dr. Durham (today is Saturday). - Data Points Medications Given: Discontinued Medications Dexamethasone (Decadron Injection) 8 mg IVP EDNOW ONE Stop: 10/09/17 09:54 Last Admin: 10/09/17 10:09 Dose: 8 mg Diazepam (Valium) 5 mg IVP EDNOW ONE Stop: 10/09/17 09:54 Last Admin: 10/09/17 10:09 Dose: 5 mg Fentanyl (Sublimaze) 100 mcg IVP EDNOW ONE Stop: 10/09/17 09:32 Last Admin: 10/09/17 09:34 Dose: 100 mcg Ketamine HCl (Ketamine) 18.6 mg 0.2 mg/kg (18.6 mg) IVP EDNOW ONE Stop: 10/09/17 09:54 Last Admin: 10/09/17 10:09 Dose: 18.6 mg Ketorolac Tromethamine (Toradol) 15 mg IVP EDNOW ONE Stop: 10/09/17 09:54 Last Admin: 10/09/17 10:10 Dose: 15 mg Departure - Departure Disposition: Home, Routine, Self-Care Clinical Impression: Acute exacerbation of chronic low back pain Condition: Fair Instructions: Acute Low Back Pain (ED) Additional Instructions: Keep your appointment to have surgery performed on Saturday at [facility] with Dr. Durham. Return to the ER if you develop any new or worsening symptoms, if you develop uncontrolled pain or any other symptoms that concern you. Referrals: Duncan Farrell MD [Medical Doctor] - 10/15/17
[2017-10-09 13:13] VITALS: BP 152/94; PULSE 82; TEMP 98.4; O2SAT 94
== END 2017-10-09 13:12 | disposition home or self-care (01) ==
LOC: EDUNIT#
DX: M54.5 Low back pain (principal); G89.29 Other chronic pain; I10 Essential (primary) hypertension; F17.200 Nicotine dependence, unspecified, uncomplicated
CPT/HCPCS: 96374; J1100; J1885; J3010; J3360

== ENCOUNTER 2017-11-06 03:52 | Emergency (ER) | payer OTHER, MEDICAID ==
--- NOTE | 2017-11-06 04:10 | EDPHY ---
H & P Stated Complaint: BACK PAIN, RADIATING DOWN LEGS/BACK SX 2 WKS PRIOR Time Seen by Provider: 11/06/17 04:10 HPI/ROS: HPI CHIEF COMPLAINT: Acute on chronic back pain, leg pain HISTORY OF PRESENT ILLNESS: Patient is 62-year-old male, suffers from chronic back pain in the lumbar region that radiates down his legs bilaterally. He recently had surgery for this and has been recovering. Dr. Farrell did his surgery at [facility], he saw his physician last day was complaining of some low back pain and leg pain and was told that he has to wait for the swelling to go down to see if there is much improvement. He is followed by chronic pain and takes chronic opioids for pain management. He ran out yesterday. He is not due for refill until Saturday. He denies any new injury. Denies trauma. Denies saddle anesthesia or leg weakness. States the pain is similar to his previous low back pain that he chronically deals with. Currently rates his pain 6/10. He was unable to sleep last night. Unable to lay flat. Decided come the emergency room. Past Medical History: Acute on chronic low back pain, chronic pain, hypertension Past Surgical History: Recent lumbar surgery Social History: Denies daily use of drugs alcohol tobacco. Family History: Noncontributory ROS REVIEW OF SYSTEMS: A comprehensive 10 point review of systems is otherwise negative aside from elements mentioned in the history of present illness. Exam Constitutional appears nontoxic no acute distress triage nursing summary reviewed, vital signs reviewed, awake/alert. Eyes normal conjunctivae and sclera, EOMI, PERRLA. HENT normal inspection, atraumatic, moist mucus membranes, no epistaxis, neck supple/ no meningismus, no raccoon eyes. Respiratory clear to auscultation bilaterally, normal breath sounds, no respiratory distress, no wheezing. Cardiovascular rate normal, regular rhythm, no murmur, no edema, distal pulses normal. Gastrointestinal soft, non-tender, no rebound, no guarding, normal bowel sounds, no distension, no pulsatile mass. Genitourinary no CVA tenderness. Musculoskeletal appreciate significant leg weakness on exam, ambulates with a cane, no midline vertebral tenderness, full range of motion, no calf swelling, no tenderness of extremities, no meningismus, good pulses, neurovascularly intact. Skin pink, warm, & dry, no rash, skin atraumatic. Neurologic awake, alert and oriented x 3, AAOx3, moves all 4 extremities equally, motor intact, sensory intact, CN II-XII intact, normal cerebellar, normal vision, normal speech. Psychiatric normal mood/affect. Heme/Lymph/Immune no lymphadenopathy. Differential Diagnosis: Includes but is not limited to in a particular order acute on chronic back pain, sciatica, stenosis. Patient is requesting to have an IV established and pain control given in the emergency room. He has declined any imaging. Medical Decision Making: Plan for this patient IV establishment pain control, IV Dilaudid 1 mg for pain control, IV Zofran 4 mg for nausea, gentle IV fluids check basic blood work and re-evaluate. Re-evaluation: 0548: Patient re-evaluated he sleeping comfortably here in emergency room. I did re-evaluate him he states his back pain is greatly improved after IV pain medicine here in emergency room. He has no red flags. No fever. His incision down his lumbar spine is clean, dry and intact. There is no leg weakness on exam. He has no saddle anesthesia. He would like to go home. I did offer him admission for further pain management however he has declined like to go home. I will prescribe a very limited supply of [place] take-home. He understands follow-up with his pain management doctor additionally follow up with Neurosurgery. I did discussed return precautions with him he understands return emergency room if develops any worsening symptoms includes severe back pain, numbness or tingling, fever or questions or concerns. Additionally I did offer the patient imaging including x-ray CT or MR however he has declined any imaging. Only wanted acute pain control. Source: Patient - Personal History Current Tetanus Diphtheria and Acellular Pertussis (TDAP): Yes Tetanus Vaccine Date: < 10 years - Medical/Surgical History Hx Asthma: No Hx Chronic Respiratory Disease: No Hx Diabetes: No Hx Cardiac Disease: Yes Hx Renal Disease: No Hx Cirrhosis: No Hx Alcoholism: No Hx HIV/AIDS: No Hx Splenectomy or Spleen Trauma: No Other PMH: HTN, BACK SURGERY, CYST REMOVED ON BACK. ?RA chronic pain. PAIN MGT - Social History Smoking Status: Light smoker Constitutional: Initial Vital Signs Temperature (C) 36.6 C 11/06/17 03:59 Heart Rate 93 11/06/17 03:59 Respiratory Rate 16 05/02/18 03:59 Blood Pressure 184/94 H 11/06/17 03:59 O2 Sat (%) 100 11/06/17 03:59 O2 Delivery Mode Room Air Allergies/Adverse Reactions: No Known Allergies Allergy (Verified 09/15/17 01:06) Home Medications: Medication Instructions Recorded amLODIPine BESYLATE [Amlodipine 10 mg PO 07/28/16 Besylate] Gabapentin 11/06/17 Tylenol Extra Strength 11/06/17 Valium 2 MG (*) 11/06/17 Medical Decision Making - Data Points Laboratory Results: Laboratory Results 11/06/17 04:42 11/06/17 04:42 11/06/17 11/06/17 04:42 04:42 WBC 6.18 10^3/uL 10^3/uL (3.80-9.50) RBC 4.30 10^6/uL L 10^6/uL (4.40-6.38) Hgb 11.3 g/dL L g/dL (13.7-17.5) Hct 35.4 % L % (40.0-51.0) MCV 82.3 fL fL (81.5-99.8) MCH 26.3 pg L pg (27.9-34.1) MCHC 31.9 g/dL L g/dL (32.4-36.7) RDW 16.3 % H % (11.5-15.2) Plt Count 214 10^3/uL 10^3/uL (150-400) MPV 10.6 fL fL (8.7-11.7) Neut % (Auto) 67.1 % % (39.3-74.2) Lymph % (Auto) 20.6 % % (15.0-45.0) [place] % (Auto) 8.7 % % (4.5-13.0) Eos % (Auto) 2.8 % % (0.6-7.6) Baso % (Auto) 0.5 % % (0.3-1.7) Nucleat RBC Rel Count 0.0 % % (0.0-0.2) Absolute Neuts (auto) 4.15 10^3/uL 10^3/uL (1.70-6.50) Absolute Lymphs (auto) 1.27 10^3/uL 10^3/uL (1.00-3.00) Absolute Monos (auto) 0.54 10^3/uL 10^3/uL (0.30-0.80) Absolute Eos (auto) 0.17 10^3/uL 10^3/uL (0.03-0.40) Absolute Basos (auto) 0.03 10^3/uL 10^3/uL (0.02-0.10) Absolute Nucleated RBC 0.00 10^3/uL 10^3/uL (0-0.01) Immature Gran % 0.3 % % (0.0-1.1) Immature Gran # 0.02 10^3/uL 10^3/uL (0.00-0.10) Sodium 149 mEq/L H mEq/L (135-145) Potassium 3.9 mEq/L mEq/L (3.5-5.2) Chloride 114 mEq/L H mEq/L (97-110) Carbon Dioxide 24 mEq/l mEq/l (22-31) Anion Gap 11 mEq/L mEq/L (8-16) BUN 20 mg/dL mg/dL (7-23) Creatinine 1.1 mg/dL mg/dL (0.7-1.3) Estimated GFR > 60 Glucose 122 mg/dL H mg/dL (70-100) Calcium 9.1 mg/dL mg/dL (8.5-10.4) Medications Given: Discontinued Medications Hydromorphone HCl (Dilaudid) 1 mg IVP EDNOW ONE Stop: 11/06/17 04:30 Last Admin: 11/06/17 04:55 Dose: 1 mg Sodium Chloride (Ns) 1,000 mls @ 0 mls/hr IV EDNOW ONE; Wide Open PRN Reason: Protocol Stop: 11/06/17 04:30 Last Admin: 11/06/17 04:55 Dose: 1,000 mls Ondansetron HCl (Zofran) 4 mg IVP EDNOW ONE Stop: 11/06/17 04:30 Last Admin: 11/06/17 04:55 Dose: 4 mg Departure - Departure Disposition: Home, Routine, Self-Care Clinical Impression: Back pain Qualifiers: Back pain location: low back pain Chronicity: acute Back pain laterality: unspecified Sciatica presence: with sciatica Sciatica laterality: bilateral sciatica Qualified Code(s): M54.42 - Lumbago with sciatica, left side Condition: Good Instructions: Low Back Strain (ED), Acute Low Back Pain (ED) Additional Instructions: 1. Follow up with ear pain management doctor. 2. Follow up with Neurosurgery 3. Return to the emergency room if you have worsening symptoms questions or concerns Referrals: Talia Garcia MD [Primary Care Provider] - As per Instructions Duncan Farrell MD [Medical Doctor] - As per Instructions
[2017-11-06] MEDS ORDERED: NS 1,000 ML IV ONE (04:29)
[2017-11-06] MEDS ORDERED: ONDANSETRON 4 MG/2 ML VIAL IVP ONE (04:29)
[2017-11-06] MEDS ORDERED: HYDROmorphONE/DILAUDID 2 MG/ML INJ IVP ONE (04:29)
[2017-11-06 05:03] LABS: PLATELET COUNT 214 10^3/uL (150-400)
[2017-11-06] MEDS ORDERED: HYDROCOD/APAP 5/325 PREPACK#6 BTL TAKEHOME ONE (05:47)
[2017-11-06 06:30] VITALS: BP 175/121
== END 2017-11-06 06:30 | disposition home or self-care (01) ==
DX: G89.18 Other acute postprocedural pain (principal); M54.42 Lumbago with sciatica, left side; E86.9 Volume depletion, unspecified; I10 Essential (primary) hypertension; F17.200 Nicotine dependence, unspecified, uncomplicated
CPT/HCPCS: 96374; J1170; J2405

== ENCOUNTER 2017-12-27 21:09 | Emergency (ER) | payer OTHER, MEDICAID ==
[2017-12-27] MEDS ORDERED: NS 1,000 ML IV ONE (21:38)
[2017-12-27] MEDS ORDERED: HYDROmorphONE/DILAUDID 2 MG/ML INJ IVP ONE (21:38)
[2017-12-27] MEDS ORDERED: methylPREDNISolone SOD SUCC 125 MG/2 ML VIAL IVP ONE (21:38)
--- NOTE | 2017-12-27 21:38 | EDPHY ---
H & P Stated Complaint: L leg pain Time Seen by Provider: 12/27/17 21:31 HPI/ROS: HPI: This is the 62-year-old male who presents with Chief Complaint: Left lower back pain and sciatic Location: Left lower back Quality: Pain Duration: Weeks Signs and Symptoms: No bleeding,+ radiation, no numbness, no weakness, no tingling, no incontinence, no decreased range of motion, no swelling, + pain, no fever Timing: Acute on chronic Severity: Moderate Context: Patient has a history of chronic back pain in the lumbar region, status post lumbar surgery by Dr. Farrell at [facility] presents with complaints of acute on chronic left lower back pain radiating to his left leg over the last week. Patient is followed by pain management as well as Neurosurgery for which he has an appointment next to discuss further surgical option. Patient was referred to physical therapy but he declined from Neurosurgery as he was unable to ambulate and participate.. Uses a cane to aid aid ambulation at baseline. Patient reports that he has Percocet, Neurontin, Valium with mild transient relief. Denies any change in bladder or bowel habits. Patient understands that he is under pain management is not able to get any prescription pain medications from the emergency room. He reports that he just feels like he is having sciatica again. He is open to Solu-Medrol and Medrol Dosepak. He politely declines any imaging as he states"I have been radiated over and over again due to multiple images and I do not need it." Modifying Factors: Comment: ROS: see HPI Constitutional: No fever, no chills, no weight loss Eyes: No blurred vision Respiratory: No shortness of breath, no cough Cardiovascular: No chest pain Gastrointestinal: No nausea, no vomiting no diarrhea Genitourinary: No dysuria Extremities: No myalgias Neurologic: No weakness, no numbness Skin: No rashes Hematologic: No bruising, no bleeding MEDICAL/SURGICAL/SOCIAL HISTORY: Medical/Surgical history: HTN, BACK SURGERY, CYST REMOVED ON BACK, ?RA chronic pain PAIN MGT Social history: Disable. CONSTITUTIONAL: Extremely well-appearing dramatic histrionic male, smells like tobacco, awake and alert, no obvious distress HEENT: Atraumatic and normocephalic. NECK: supple, no midline tenderness, flexion 45 degrees, extension 45 degrees, right and left lateral flexion 45 degrees. No meningismus. Cardiovascular: Normal S1/S2, regular rate, regular rhythm, without murmur rub or gallop. PULMONARY/CHEST: Symmetrical and nontender. Clear to auscultation bilaterally. Good air movement. No accessory muscle usage. ABDOMEN: Soft, protuberant, nontender. PELVIC: no pain with rocking; bilateral hips flexion 125 degrees, extension 30 degrees, with no pain internal rotation and no pain external rotation. BACK: No midline tenderness, no paraspinous spasm, deep tendon reflexes 2/2, no pain with straight leg raise, No foot drop. Achilles reflexes are equal bilaterally. Refuses to walk on heels and toes. EXTREMITIES: 2/2 pulses, strength 5/5, no deformities, no clubbing, no cyanosis or edema. NEUROLOGICAL: no focal neuro deficits. GCS 15. Light touch sensation intact. SKIN: Warm and dry, no erythema. no rash. Good capillary refill. Source: Patient, Old records Exam Limitations: No limitations - Personal History Current Tetanus/Diphtheria Vaccine: Unsure Current Tetanus Diphtheria and Acellular Pertussis (TDAP): Unsure Tetanus Vaccine Date: < 10 years - Medical/Surgical History Hx Asthma: No Hx Chronic Respiratory Disease: No Hx Diabetes: No Hx Cardiac Disease: Yes Hx Renal Disease: No Hx Cirrhosis: No Hx Alcoholism: No Hx HIV/AIDS: No Hx Splenectomy or Spleen Trauma: No Other PMH: HTN, BACK SURGERY, CYST REMOVED ON BACK. ?RA chronic pain. PAIN MGT - Social History Smoking Status: Heavy smoker Constitutional: Initial Vital Signs Temperature (C) 36.5 C 12/27/17 21:13 Heart Rate 116 H 12/27/17 21:13 Respiratory Rate 16 12/27/17 21:13 Blood Pressure 152/94 H 12/27/17 21:13 O2 Sat (%) 97 12/27/17 21:13 O2 Delivery Mode Room Air Allergies/Adverse Reactions: No Known Allergies Allergy (Verified 09/15/17 01:06) Home Medications: Medication Instructions Recorded amLODIPine BESYLATE [Amlodipine 10 mg PO 07/28/16 Besylate] Gabapentin 11/06/17 Tylenol Extra Strength 11/06/17 Valium 2 MG (*) 05/02/18 methylPREDNISolone [Medrol Dose 1 each PO AD #0 ea 12/27/17 Juan Alberto] Medical Decision Making ED Course/Re-evaluation: Patient has no neurological deficits to warrant emergent MRI and patient refuses any imaging. I have discussed with him that he is currently on pain management and that the ER will not prescribe chronic pain medications. He is understanding of this. No signs of neurovascular compromise/tenting of skin/compartment syndrome/ extremities and joints examined above and below area of concern and are neurovascularly intact/cauda equina syndrome. Patient given 1 L normal saline, IV Solu-Medrol 125 mg and IV Dilaudid 1 mg with adequate relief of pain He is given a prescription for Medrol Dosepak and advised to follow up with Neurosurgery and Pain Management. Patient walked out of the emergency room without any ambulatory deficits. This patient was seen under the supervision of my secondary supervising physician. I evaluated care for this patient independently. Discussed this patient with Dr. Weston who did not see the patient. Differential Diagnosis: Back pain including but not limited to muscular pain, herniated disc, spine fracture, intra-abdominal causes and urinary tract infection. - Data Points Medications Given: Discontinued Medications Hydromorphone HCl (Dilaudid) 1 mg IVP EDNOW ONE Stop: 12/27/17 21:39 Last Admin: 12/27/17 21:45 Dose: 1 mg Sodium Chloride (Ns) 1,000 mls @ 0 mls/hr IV EDNOW ONE; Wide Open PRN Reason: Protocol Stop: 12/27/17 21:39 Last Admin: 12/27/17 21:44 Dose: 1,000 mls Methylprednisolone Sodium Succinate (Solu-Medrol) 125 mg IVP EDNOW ONE Stop: 12/27/17 21:39 Last Admin: 12/27/17 21:48 Dose: 125 mg Departure - Departure Disposition: Home, Routine, Self-Care Clinical Impression: Acute exacerbation of chronic low back pain Left-sided low back pain with sciatica Qualifiers: Chronicity: chronic Sciatica laterality: sciatica of left side Qualified Code(s ): M54.42 - Lumbago with sciatica, left side Condition: Good Instructions: Sciatica (ED), Pain Management (ED), Lumbar Radiculopathy (ED) Additional Instructions: Please keep follow-up appointments with Neurosurgery and Pain Management. Take Medrol Dosepak as directed. Return to the ER immediately if you have fevers/chills, flu like symptoms, incontinence or inability to urinate or defecate, weakness, paralysis, or any other symptom that concerns you. Referrals: Talia Garcia MD [Primary Care Provider] - As per Instructions Duncan Farrell MD [Medical Doctor] - 01/02/18 Prescriptions: methylPREDNISolone [Medrol Dose Juan Alberto] 1 each PO AD #0 ea
[2017-12-27 21:59] VITALS: BP 140/98
== END 2017-12-27 22:08 | disposition home or self-care (01) ==
DX: M54.42 Lumbago with sciatica, left side (principal); G89.29 Other chronic pain; E86.9 Volume depletion, unspecified; I10 Essential (primary) hypertension; F17.200 Nicotine dependence, unspecified, uncomplicated
CPT/HCPCS: 96374; J1170; J2930